=== PATIENT | female | born 1960 | race Two or more races ===

== ENCOUNTER 2019-07-17 06:23 | Day surgery (SDC) | payer OTHER | END 2019-07-17 09:45 | disposition home or self-care (01) | LOC: AMB-ENDOS 06:23 | DX: D12.2 Benign neoplasm of ascending colon (principal); K57.30 Diverticulosis of large intestine without perforation or abscess without bleeding ==

== ENCOUNTER 2019-09-27 10:30 | Inpatient (IN) | payer OTHER ==
[~2019-09-27] VITALS: Ht 157.5 cm; Wt 76.7 kg
[2019-09-27] MEDS ORDERED: METFORMIN HCL500 M3 PO (11:45)
[2019-09-27] MEDS ORDERED: TRUSOPT10 ML OP (11:45)
[2019-09-27] MEDS ORDERED: LOTREL 10-20 M1 EACH PO (11:45)
[2019-09-27] MEDS ORDERED: CLONAZEPAM0.5 MG PO (11:46)
[2019-09-27] MEDS ORDERED: PROZAC20 MG PO (11:47)
[2019-09-27] MEDS ORDERED: OMEGA-3 FISH1000 MG PO (11:47)
[2019-09-27] MEDS ORDERED: CALTRATE 600+D1 EACH PO (11:48)
[2019-09-27] MEDS ORDERED: VITAMIN C100 MG PO (11:48)
[2019-10-04] MEDS ORDERED: DORZOLAMIDE HCL10 ML (08:34)
[2019-10-06] MEDS ORDERED: PRILOSEC OTC20 MG PO (10:18)
[2019-10-06] MEDS ORDERED: PERCOCET 5-3251 EACH PO (10:18)
[2019-10-06] MEDS ORDERED: INTESTINEX680 M1 PO (10:18)
== END 2019-10-06 15:00 | disposition home or self-care (01) | DRG 331 ==
LOC: O/R 10-03 06:00 → SURH 10-03 06:00 → O/R 10-03 07:00 → SURH 10-03 11:08
PROVIDERS: ADMIT Surgery; ATTEND Surgery
PROC: 07TB4ZZ Resection of Mesenteric Lymphatic, Percutaneous Endoscopic Approach (ICD-10-PCS; 2019-10-03)
PROC: 0DB94ZX Excision of Duodenum, Percutaneous Endoscopic Approach, Diagnostic (ICD-10-PCS; 2019-10-03)
PROC: 0DTF4ZZ Resection of Right Large Intestine, Percutaneous Endoscopic Approach (ICD-10-PCS; principal; 2019-10-03 07:00)
DX: C18.2 Malignant neoplasm of ascending colon (principal); R59.0 Localized enlarged lymph nodes; K63.89 Other specified diseases of intestine; K66.0 Peritoneal adhesions (postprocedural) (postinfection); E11.9 Type 2 diabetes mellitus without complications; Z79.4 Long term (current) use of insulin

== ENCOUNTER 2020-02-09 06:42 | Day surgery (SDC) | payer OTHER ==
[~2020-02-09 06:42] MED LIST: CALTRATE 600+D1 EACH PO; CLONAZEPAM0.5 MG PO; DORZOLAMIDE HCL10 ML; INTESTINEX680 M1 PO; LOTREL 10-20 M1 EACH PO; METFORMIN HCL500 M3 PO; OMEGA-3 FISH1000 MG PO; PERCOCET 5-3251 EACH PO; PRILOSEC OTC20 MG PO; PROZAC20 MG PO; TRUSOPT10 ML OP; VITAMIN C100 MG PO
[2020-02-09] MEDS ORDERED: PERCOCET 5-3251 EACH PO (10:00)
== END 2020-02-09 14:55 | disposition home or self-care (01) ==
LOC: CIR.AMB 06:42
PROVIDERS: ATTEND Surgery
DX: C18.2 Malignant neoplasm of ascending colon (principal); Z20.828 Contact with and (suspected) exposure to other viral communicable diseases
CPT/HCPCS: 36561; C1751